=== PATIENT | male | born 1950 | race Asian ===

== ENCOUNTER 2018-12-06 09:44 | Day surgery (SDC) | payer OTHER, MEDICARE ==
[2018-12-05 11:56] VITALS: BMI 33.2
[2018-12-06] MEDS ORDERED: LIDOCAINE VISCOUS 2% ORAL/TOP 20 ML UNIT-DOSE CUP ONE (10:29)
[2018-12-06] MEDS ORDERED: LIDOCAINE VISCOUS 2% ORAL/TOP 20 ML UNIT-DOSE CUP PO ONE (11:16)
--- NOTE | 2018-12-06 12:24 | ECHO ---
Name: PARK, HO M Exam:Transesophageal Echocardiogram Study Date: 12/06/2018 11:14 AM Age: 68 yrs Reason For Study: MITRAL REGURGITION Height: 60 in Weight: 170 lb BSA: 1.7 m2 ? MVP with possbile ruptured chordae and flail leaflet and eccentric mitral valve regurgitation Eccentric mitral valve regurg itation Procedure: A 2D transesophageal echocardiogram with Doppler and color flow Doppler was performed. Informed conse nt for Transesophageal Echocardiogram, and use of a contrast agent as needed, was obtained prior to the proc edure. The patient was brought to the endoscopy suite in a fasting state. An intravenous line was placed. A topical anesthetic agent was used for oropharangeal anesthesia. A bite block was inserted. IV concious sedati on was administered using propafol. A multifrequency, multiplane transesopheageal echocardiographic endoscop e was inserted and manipulated in the standard fashion to achieve multiplane views. The usual views were ob tained; basal, mid-esophageal, transgastric and aortic views. The patient's vital signs, including blood pres sure, heart rate, pulse oximetry and cardiac rhythm were monitored throughout the procedure and remained st able. The patient tolerated the procedure well without evidence of orophangeal or esophageal trauma. There were no complications. The patient was in atrial fibrillation with controlled ventricular rate during the exa m. Left Ventricle The left ventricle is normal in size. Left ventricular systolic function is normal. The left ventricu lar ejection fraction is normal. No regional wall motion abnormalities noted. Atria The left atrium is mildly dilated. No thrombus is detected in the left atrial appendage. No left atri al mass or thrombus visualized. The right atrium is mildly dilated. The interatrial septum is intact with no evidence for an atrial septal defect. Injection of contrast documented no interatrial shunt. Mitral Valve There is moderate mitral valve prolapse. Prolapse of the posterior mitral leaflet(s). Highly mobile m ass consistent with a torn or redundant chordae seen. Prolapse of the middle scallop of the posterior ines ral leaflet. The mitral valve appears to be partially flail. There is moderate to severe mitral regurgita tion. The mitral regurgitant jet is eccentrically directed. Flow reversal noted in pulmonary veins consistent w ith significant mitral regurgitation. Tricuspid Valve The tricuspid valve is not well visualized, but is grossly normal. There is moderate tricuspid regurg itation. Aortic Valve The aortic valve is normal in structure and function. The aortic valve is trileaflet. No aortic regur gitation is present. Pulmonic Valve The pulmonic valve is not well seen, but is grossly normal. Mild pulmonic valvular regurgitation. Great Vessels Small atherosclerotic plaque in descending thoracic aorta and distal aortic arch. Pericardium/Pluera There is no pericardial effusion. Interpretation Summary The left ventricle is normal in size. Left ventricular systolic function is normal. The left ventricular ejection fraction is normal. No regional wall motion abnormalities noted. The left atrium is mildly dilated. No thrombus is detected in the left atrial appendage. No left atrial mass or thrombus visualized. The right atrium is mildly dilated. The interatrial septum is intact with no evidence for an atrial septal defect. Injection of contrast documented no interatrial shunt. There is moderate mitral valve prolapse. Prolapse of the posterior mitral leaflet(s). Highly mobile mass consistent with a torn or redundant chordae seen. Prolapse of the middle scallop of the posterior mitral leaflet. The mitral valve appears to be partially flail. There is moderate to severe mitral regurgitation. The mitral regurgitant jet is eccentrically directed. Flow reversal noted in pulmonary veins consistent with significant mitral regurgitation. There is moderate tricuspid regurgitation. The aortic valve is normal in structure and function. Mild pulmonic valvular regurgitation. Small atherosclerotic plaque in descending thoracic aorta and distal aortic arch There is no pericardial effusion. ? MVP with possbile ruptured chordae and flail leaflet and eccentric mitral valve regurgitation Eccentric mitral valve regurg itation Mundo Carr MD 12/06/2018 12:23 PM
[2018-12-06 12:45] VITALS: BP 124/77; PULSE 54; TEMP 98
== END 2018-12-06 12:45 | disposition home or self-care (01) ==
LOC: JASU-ENDO 09:44
PROVIDERS: ATTEND Internal Medicine Cardiovascular Disease
PROC: B246ZZ4 Ultrasonography of Right and Left Heart, Transesophageal (ICD-10-PCS; principal; 2018-12-06 10:30)
DX: I48.91 Unspecified atrial fibrillation (principal)
CPT/HCPCS: 93312; 93325